=== PATIENT | female | born 1970 | race Caucasian/White ===

== ENCOUNTER 2017-10-16 11:38 | Outpatient (REF) | payer MEDICAID, SELFPAY | END 2017-10-16 11:39 | LOC: NCHCN 11:38 | PROVIDERS: PCP Nurse Practitioner Family; Visit Provider Nurse Practitioner Family | DX: L60.3 Nail dystrophy (principal) | CPT/HCPCS: 87101; 87206 ==

== ENCOUNTER 2019-08-23 16:00 | Outpatient (REF) | payer MEDICAID, SELFPAY ==
[2019-08-23 21:36] LABS: Calculated LDL 194 mg/dL (<100); Cholesterol 277 mg/dL (<200); HDL Cholesterol 42 mg/dL (40-60); Triglyceride 205 mg/dL (<150)
== END 2019-08-23 16:20 ==
LOC: NCHCN 16:00
PROVIDERS: PCP Nurse Practitioner Family; Visit Provider Nurse Practitioner Community Health
DX: R00.2 Palpitations (principal); Z13.220 Encounter for screening for lipoid disorders; Z79.891 Long term (current) use of opiate analgesic
CPT/HCPCS: 80061

== ENCOUNTER 2019-12-14 13:18 | Outpatient (REF) | payer MEDICAID, SELFPAY ==
[2019-12-14 22:45] LABS: COMMENT (LAB VIEW ONLY) 51.28 mg/dL; Microalb ug/mg Crea 67.3 ug/mg Cr
[2019-12-14 22:49] LABS: ALT 24 U/L (14-59); AST 21 U/L (15-37); Albumin 3.7 g/dL (3.4-5.0); Alkaline Phosphatase 94 U/L (46-116); Anion Gap 6.2 mmol/L (3-11); BUN 13 mg/dL (7-18); Bilirubin, Total 0.2 mg/dL (0.2-1.0); CO2 29.8 mmol/L (21.0-32.0); CREATININE 0.78 mg/dL (0.55-1.02); Calcium 9.3 mg/dL (8.5-10.1); Calculated LDL 137 mg/dL (<100); Chloride 98 mmol/L (98-107); Cholesterol 218 mg/dL (<200); Glucose 107 mg/dL (74-106); HDL Cholesterol 42 mg/dL (40-60); Potassium 4.3 mmol/L (3.5-5.1); Sodium 134 mmol/L (136-145); Total Protein 7.7 g/dL (6.4-8.2); Triglyceride 196 mg/dL (<150)
[2019-12-14 22:54] LABS: Hemoglobin A1C 5.9 % (<5.7)
== END 2019-12-14 13:38 ==
LOC: NCHCN 13:18
PROVIDERS: PCP Nurse Practitioner Family; Visit Provider Nurse Practitioner Family
DX: G89.4 Chronic pain syndrome (principal); M54.9 Dorsalgia, unspecified; I10 Essential (primary) hypertension; E78.5 Hyperlipidemia, unspecified; D25.9 Leiomyoma of uterus, unspecified; R00.2 Palpitations; Z13.1 Encounter for screening for diabetes mellitus
CPT/HCPCS: 80053; 80061; 82043; 82570; 83036

== ENCOUNTER 2020-11-21 09:59 | Outpatient (REF) | payer MEDICAID, SELFPAY ==
[2020-11-21 16:17] LABS: Hemoglobin A1C 5.9 % (<5.7)
[2020-11-21 16:36] LABS: BUN 13 mg/dL (7-18); CREATININE 0.9 mg/dL (0.55-1.02); Calcium 9.6 mg/dL (8.5-10.1); Calculated LDL 144 mg/dL (<100); Chloride 98 mmol/L (98-107); Cholesterol 214 mg/dL (<200); Glucose 130 mg/dL (74-106); HDL Cholesterol 40 mg/dL (40-60); Potassium 4.2 mmol/L (3.5-5.1); Sodium 136 mmol/L (136-145); Triglyceride 154 mg/dL (<150)
== END 2020-11-21 10:00 | disposition home or self-care (01) ==
LOC: NCHCN 09:59
PROVIDERS: PCP Nurse Practitioner Family; Visit Provider Nurse Practitioner Family
DX: R73.03 Prediabetes (principal); I10 Essential (primary) hypertension; E78.5 Hyperlipidemia, unspecified
CPT/HCPCS: 80048; 80061; 83036

== ENCOUNTER 2021-02-01 13:35 | Outpatient (REF) | payer MEDICAID, SELFPAY ==
[2021-02-01 21:40] LABS: COMMENT (LAB VIEW ONLY) 26.89 mg/dL; Microalb ug/mg Crea 96.7 ug/mg Cr
== END 2021-02-01 13:36 | disposition home or self-care (01) ==
LOC: NCHCN 13:35
PROVIDERS: PCP Nurse Practitioner Family; Visit Provider Nurse Practitioner Family
DX: I10 Essential (primary) hypertension (principal); R73.03 Prediabetes; U07.1 COVID-19
CPT/HCPCS: 82043; 82570

== ENCOUNTER 2021-12-06 13:49 | Outpatient (REF) | payer MEDICAID, SELFPAY ==
[2021-12-06 20:59] LABS: COMMENT (LAB VIEW ONLY) 119.36 mg/dL; Microalb ug/mg Crea 27.7 ug/mg Cr
== END 2021-12-06 13:50 | disposition home or self-care (01) ==
LOC: NCHCN 13:49
PROVIDERS: PCP Nurse Practitioner Family; Visit Provider Nurse Practitioner Family
DX: R80.9 Proteinuria, unspecified (principal)
CPT/HCPCS: 82043; 82570

== ENCOUNTER 2022-11-14 16:11 | Outpatient (REF) | payer MEDICAID, SELFPAY ==
[2022-11-14 14:47] LABS: HCT 39.6 % (36.0-46.0); HGB 13.8 g/dL (11.2-15.7); MCH 31.7 pg (27.0-33.0); MCHC 34.8 % (32.0-36.0); MCV 91 fL (80-95); MPV 11.4 fL (8.0-11.0); Platelet Count 176 10^3/uL (130-400); RBC 4.36 10^6/uL (3.93-5.22); RDW 13.2 % (11.7-14.6); RDW-SD 44.1 fL; WBC 6.44 10^3/uL (4.4-10.8)
[2022-11-14 18:12] LABS: ALT 33 U/L (14-59); AST 25 U/L (15-37); Albumin 3.8 g/dL (3.4-5.0); Alkaline Phosphatase 81 U/L (46-116); Anion Gap 9.6 mmol/L (3-11); BUN 18 mg/dL (7-18); Bilirubin, Total 0.2 mg/dL (0.2-1.0); CO2 28.4 mmol/L (21.0-32.0); CREATININE 0.9 mg/dL (0.55-1.02); Calcium 9.8 mg/dL (8.5-10.1); Calculated LDL 78 mg/dL (<100); Chloride 94 mmol/L (98-107); Cholesterol 147 mg/dL (<200); Estimated GFR 76.44 (mL/min/1.73m2); Glucose 119 mg/dL (74-106); HDL Cholesterol 53 mg/dL (40-60); Potassium 4.1 mmol/L (3.5-5.1); Sodium 132 mmol/L (136-145); TSH 1.42 uIU/mL (0.36-3.74); Total Protein 8.3 g/dL (6.4-8.2); Triglyceride 83 mg/dL (<150)
== END 2022-11-14 16:12 | disposition home or self-care (01) ==
LOC: NCHCN 16:11
PROVIDERS: PCP Nurse Practitioner Family; Visit Provider Nurse Practitioner Family
DX: I10 Essential (primary) hypertension (principal); R73.03 Prediabetes; E78.5 Hyperlipidemia, unspecified; Z13.0 Encounter for screening for diseases of the blood and blood-forming organs and certain disorders involving the immune mechanism; Z13.29 Encounter for screening for other suspected endocrine disorder
CPT/HCPCS: 80053; 80061; 85027; 83036; 84443